=== PATIENT | female | born 1975 | race Caucasian/White ===

== ENCOUNTER 2017-06-08 17:06 | Emergency (ER) | payer OTHER, SELFPAY | END 2017-06-08 19:01 | disposition home or self-care (01) | PROVIDERS: Emergency Provider Nurse Practitioner Family; Family Provider Internal Medicine Adolescent Medicine; Visit Provider Nurse Practitioner Family | DX: J10.1 Influenza due to other identified influenza virus with other respiratory manifestations (principal) | CPT/HCPCS: 87804; 99201 ==

== ENCOUNTER → 2017-10-17 13:58 | Outpatient (POV) | payer OTHER, SELFPAY | PROVIDERS: Family Provider Internal Medicine Adolescent Medicine; PCP Internal Medicine Adolescent Medicine; Visit Provider Nurse Practitioner Acute Care | DX: Z00.00 Encounter for general adult medical examination without abnormal findings (principal) ==

== ENCOUNTER → 2018-04-04 09:23 | Outpatient (CLI) | payer OTHER, SELFPAY ==
--- NOTE | 2018-04-04 09:26 | US_ITS ---
US transvaginal HISTORY: Dysfunctional uterine bleeding ITS.REASON: US T/V- R/O Cysts ORDERING PHYSICIAN: Tushar Long MD PATIENT AGE: 42 years Comparison: None Last menstrual period 03/24/2018 FINDINGS: The uterus is 8 x 4 x 5.4 cm with a combined endometrial thickness of 9 mm. The uterus is retroverted. A nabothian cyst is present at 5 mm. No uterine mass apparent. The left ovary is 3.4 x 2.2 cm and contains several small follicles and a 14 mm follicular cyst as well as a 16 mm follicular cyst. The right ovary has an unremarkable appearance at 1.6 x 1.3 cm. No cul-de-sac fluid is evident. IMPRESSION: 1. Unremarkable appearing retroverted uterus 2. Follicular cysts of the left ovary
== END ==
PROVIDERS: PCP Internal Medicine Adolescent Medicine; Visit Provider Nurse Practitioner Obstetrics & Gynecology
DX: R10.2 Pelvic and perineal pain (principal)
CPT/HCPCS: 76830

== ENCOUNTER → 2018-04-06 14:33 | Outpatient (CLI) | payer OTHER, SELFPAY ==
--- NOTE | 2018-04-06 14:34 | MM_ITS ---
MM Dig screening mamm BI w/CAD CAD Screening COMPARISON: Digital mammograms with CAD 04/02/2016 and 04/01/2017 INDICATION: There is no personal or family history of breast cancer TECHNIQUE: Standard CC and MLO images were obtained. R2 CAD reviewed. FINDINGS: Scattered fibroglandular densities are seen throughout both breasts. Again noted is a slightly increased area of asymmetric glandular tissue upper outer quadrant left breast with no suspicious characteristics. There are no suspicious microcalcifications. IMPRESSION: Stable exam no suspicious lesion seen BI-RADS Category: 1 Negative RECOMMENDED FOLLOW-UP: 1YR - 1 YEAR FOLLOW-UP (A letter has been sent to the patient regarding results of the study.)
== END ==
PROVIDERS: PCP Internal Medicine Adolescent Medicine; Visit Provider Nurse Practitioner Obstetrics & Gynecology
DX: Z12.31 Encounter for screening mammogram for malignant neoplasm of breast (principal)
CPT/HCPCS: 77067

== ENCOUNTER → 2019-02-27 07:52 | Outpatient (CLI) | payer OTHER, SELFPAY ==
--- NOTE | 2019-02-27 07:54 | US_ITS ---
PROCEDURE: US TRANSVAGINAL CLINICAL INDICATION: Breakthru /abnormal vag bleeding COMPARISON: TRANVAG US transvaginal from 04/04/2018 FINDINGS: The uterus is 8.5 x 4 x 4.9 cm with a combined endometrial thickness of 6 mm. There are nabothian cyst present. No uterine mass demonstrated. The left ovary is unremarkable measuring 2.4 x 1.5 cm. Right ovary measures 3.6 x 2.8 cm and contains a 2.5 cm x 3 cm cyst no cul-de-sac fluid evident. IMPRESSION: 3 cm right ovarian cyst otherwise negative pelvic ultrasound Dictated by: Edmund Azul MD 02/27/2019 17:41 Electronically signed by Edmund Azul MD in [place] 02/27/2019 17:41
== END ==
PROVIDERS: PCP Internal Medicine Adolescent Medicine; Visit Provider Nurse Practitioner Obstetrics & Gynecology
DX: N93.9 Abnormal uterine and vaginal bleeding, unspecified (principal)
CPT/HCPCS: 76830

== ENCOUNTER → 2019-04-04 07:27 | Outpatient (CLI) | payer OTHER, SELFPAY ==
[2019-04-04 07:38] LABS: Basophils % 0.6 % (0.1-2.0); Eosinophils # 0.1 K/mm3 (0.0-0.4); Eosinophils % 1.5 % (0.1-12.0); Hematocrit 41.1 % (37.0-47.0); Lymphocytes # 1.5 K/mm3 (0.7-4.5); Lymphocytes % 26.5 % (10-50); Mean Corpuscular HGB Conc 31.6 g/dL (31.8-35.4); Mean Corpuscular Hemoglobin 32.2 pg (27.0-31.2); Mean Corpuscular Volume 101.8 fl (81-99); Mean Platelet Volume 8.1 fl (7.4-10.4); Monocytes # 0.2 K/mm3 (0.1-1.0); Monocytes % 3.9 % (1.7-9.3); Neutrophils # 3.8 K/mm3 (1.8-7.8); Neutrophils % 67.4 % (37.0-80.0); Platelet Count 310 K/mm3 (142-424); Red Blood Count 4.03 M/mm3 (4.20-5.40); White Blood Count 5.7 K/mm3 (4.8-10.8)
[2019-04-04 08:23] LABS: Anion Gap 16.4 mEq/L (5-15); Blood Urea Nitrogen 21 mg/dL (7-18); Calcium 9.3 mg/dL (8.5-10.1); Carbon Dioxide 25 mmol/L (21.0-32.0); Chloride 102 mmol/L (98-107); Creatinine,Serum 0.88 mg/dL (0.55-1.02); Estimated Glomerular Filt Rate 70 ml/min (>60); GFR (African American) 85 ML/MIN (>60); Glucose 94 mg/dL (74-106); Magnesium 1.9 mg/dL (1.4-2.2); Potassium 4.4 mmoL/L (3.5-5.1); Sodium 139 mmol/L (136-145); Thyroid Stimulating Hormone 1.62 uIU/ml (0.358-3.740)
== END ==
PROVIDERS: Visit Provider Nurse Practitioner Family
DX: I10 Essential (primary) hypertension (principal); R06.00 Dyspnea, unspecified; R00.2 Palpitations
CPT/HCPCS: 36415; 80048; 83735; 84443; 85025

== ENCOUNTER → 2019-04-05 09:59 | Outpatient (CLI) | payer OTHER, SELFPAY ==
--- NOTE | 2019-04-05 | CA_ITS ---
[facility] RADIOLOGICAL CONSULTATION Patient Name : Maritza Monge X-RAY # : [id number] Physician: GABE YANNICK AGE: 43Y : 1975 00:00:00 ( F ) Exam : CA ECHO DOPPLER COMPLETE ACC # : [id number] Study Date : 04/05/2019 10:04:50 Patient Class : O FINAL REPORT CLINICAL DATA: FINDINGS: TRANSCRIBED REPORT EXAM: Comprehensive 2D, Doppler, and color-flow Echocardiogram Chief Human Resources Officer: Yari Velásquez, RT(R) Ht: 5 ft 5 in Wt: 190lbs BSA: 1.94 BP: 144/93 mmHg Indications: Palpitations, HTN, SOB, family histoy of heart disease. 2D Dimensions Aortic Root 2.60 cm F: 2.7 - 3.3 Left Atrium 3.30 cm F: 2.7 - 3.8 LVOT 1.69 cm (M/F) 1.5-2.5 M-Mode Dimensions RVDd 2.19 cm (0.9-2.6) LVDd 4.61 cm (3.5-5.7) Ao Diam 2.60 cm (2.0-3.7) LVDs 3.36 cm (3.5-5.7) AV Cusp 3.30 cm (1.5-2.6) IVSd 0.87 cm (0.6-1.1) PWd 0.91 cm (0.6-1.1) EF (Teich) 52.90% FS 27.10% EDV (Teich) 97.80 mL ESV (Teich) 46.10 mL LV Diastology E/A Ratio 1.03 Mitral Valve MV A Velocity 53.00 (40-130 cm/s) Electronically signed by : IMPRESSION: Dictated by at Transcribed by at
== END ==
PROVIDERS: PCP Internal Medicine Adolescent Medicine; Visit Provider Nurse Practitioner Family
DX: R00.2 Palpitations (principal)
CPT/HCPCS: 93306

== ENCOUNTER → 2019-07-13 07:27 | Outpatient (CLI) | payer OTHER, SELFPAY ==
--- NOTE | 2019-07-13 07:32 | MM_ITS ---
PROCEDURE: MM DIG SCREENING MAMM BI W/CAD CLINICAL INDICATION: Routine Screening Mammogram There is no personal or family history of breast cancer COMPARISON: DMDB DIG MAMM-DX KYA from 04/02/2016 DMSB DIG MAMM-SCREEN KYA W/CAD from 04/01/2017 [facility] MM Dig screening mamm BI w/CAD from 04/06/2018 TECHNIQUE: Standard CC and MLO images and 3D Tomosynthesis was obtained. R2 CAD reviewed. FINDINGS: Scattered fibroglandular densities are seen throughout both breasts and the findings of bilateral and symmetrical. There is no new or suspicious lesion in either breast and no suspicious microcalcifications. There are small nodes in both axilla. IMPRESSION: Fibrofatty parenchyma with no suspicious lesions seen BI-RAD Category: 1 Negative FOLLOW-UP: 1YR 1 Year Follow-up (A letter has been sent to the patient regarding results of the study.) Dictated by: Dr. Mateus Hunter MD 07/16/2019 09:[address] Mateus Hunter MD in [place] 07/16/2019 09:42
== END ==
PROVIDERS: PCP Internal Medicine Adolescent Medicine; Visit Provider Nurse Practitioner Obstetrics & Gynecology
DX: Z12.31 Encounter for screening mammogram for malignant neoplasm of breast (principal)
CPT/HCPCS: 77063; 77067

== ENCOUNTER 2019-08-29 15:00 | Outpatient (RCR) | payer OTHER, SELFPAY | END 2019-08-29 15:05 | disposition home or self-care (01) | LOC: PT 15:00 | PROVIDERS: PCP Internal Medicine Adolescent Medicine; Visit Provider Podiatrist | DX: M72.2 Plantar fascial fibromatosis (principal) | CPT/HCPCS: 20560; 97010; 97014; 97033; 97035; 97110; 97140; 97163; G0283 ==

== ENCOUNTER → 2019-09-20 14:17 | Outpatient (CLI) | payer OTHER, SELFPAY ==
--- NOTE | 2019-09-20 14:19 | MR_ITS ---
PROCEDURE: MR ANKLE LT WO/W CON CLINICAL INDICATION: Eval. for PF tear, achilles insertional tendonitis Plantar fasciitis/tear, Achilles insertional tendinitis COMPARISON: No exams were available for comparison TECHNIQUE: Routine multiplanar multi echo sequences are performed without and with gadolinium enhancement. FINDINGS: The tibiofibular ligaments appear intact. There is thinning of the ATFL laterally. Small amount fluid is present at the anterior aspect of the ankle joint and posterior to the ATFL. The PT FL appears intact as does the deltoid ligament. The talar dome has an unremarkable appearance. The Achilles tendon is unremarkable. There is a mild amount of bone marrow edema involving the calcaneus at the insertional site of the plantar fascia with mild thickening and slight increased T2 signal of the plantar fascia posteriorly. No obvious fascial tear. There is subcutaneous edema involving the heel at the region of the posterior aspect of the plantar fascia and calcaneus junction. No fluid collections evident at this region. No tendinous abnormalities are apparent. IMPRESSION: 1. The findings are compatible with plantar fasciitis with mild thickening and increased T2 signal of the plantar fascia at its insertion on the calcaneus with some mild edema of the calcaneus at this area and subcutaneous edema also present at this region. No evidence of fascial tear. 2. There is thinning of the ATFL with questionable discontinuity laterally which could be due to an old injury with a small amount of fluid at this area and a small amount fluid in the anterior aspect of the ankle joint Dictated by: Edmund Azul MD 09/22/2019 09:27 Electronically signed by Edmund Azul MD in [place] 09/22/2019 09:27
== END ==
PROVIDERS: PCP Internal Medicine Adolescent Medicine; Visit Provider Podiatrist
DX: M72.2 Plantar fascial fibromatosis (principal); M79.672 Pain in left foot
CPT/HCPCS: 73723; A9576

== ENCOUNTER → 2020-06-04 08:53 | Outpatient (CLI) | payer OTHER, SELFPAY ==
[2020-06-04 09:00] LABS: Adenovirus,PCR Not Detected (NotDetected); Bordetella Pertussis Not Detected (NotDetected); Chlamydophila Pneumoniae, PCR Not Detected (NotDetected); Coronavirus 19, PCR Not Detected (NotDetected); Coronavirus 229E Not Detected (NotDetected); Coronavirus NL63 Not Detected (NotDetected); Coronavirus OC43 Not Detected (NotDetected); Coronovirus HKU1,PCR Not Detected (NotDetected); Human Metapneumovirus Not Detected (NotDetected); Influenza A, PCR Not Detected (NotDetected); Influenza AH1, 2009 Not Detected (NotDetected); Influenza AH1, PCR Not Detected (NotDetected); Influenza AH3,PCR Not Detected (NotDetected); Influenza B, PCR Not Detected (NotDetected); Mycoplasma Pneumoniae, PCR Not Detected (NotDetected); Parainfluenza 1, PCR Not Detected (NotDetected); Parainfluenza 2, PCR Not Detected (NotDetected); Parainfluenza 3, PCR Not Detected (NotDetected); Parainfluenza 4, PCR Not Detected (NotDetected); Respiratory Syncytial Virus Not Detected (NotDetected)
[2020-06-04 12:02] LABS: Rhinovirus/Enterovirus Detected (NotDetected)
== END ==
PROVIDERS: Visit Provider Nurse Practitioner Family
DX: Z03.818 Encounter for observation for suspected exposure to other biological agents ruled out (principal); J06.9 Acute upper respiratory infection, unspecified; B34.1 Enterovirus infection, unspecified
CPT/HCPCS: 36415; 87581; 87633; 87798

== ENCOUNTER → 2020-07-16 13:35 | Outpatient (CLI) | payer OTHER, SELFPAY ==
--- NOTE | 2020-07-16 14:21 | MM_ITS ---
PROCEDURE: MM DIG SCREENING MAMM BI W/CAD Digital Breast Tomosynthesis Included CLINICAL INDICATION: Routine Screening Mammogram There is no personal or family history of breast cancer. The patient is on control pills. COMPARISON: MG DMSB DIG MAMM-SCREEN KYA W/CAD from 04/01/2017 MG [facility] MM Dig screening mamm BI w/CAD from 04/06/2018 MG MM DIG SCREENING MAMM BI W/CAD from 07/13/2019 TECHNIQUE: Standard CC and MLO images and 3D Tomosynthesis was obtained. R2 CAD reviewed. FINDINGS: Mild to moderate scattered fibroglandular densities are seen throughout both breasts and the findings are bilateral and symmetrical. There is a stable tiny benign-appearing nodular density outer quadrant right breast. There is no suspicious lesion and no suspicious microcalcifications. IMPRESSION: Mild to moderate breast density with no suspicious lesions seen BI-RAD Category: 1 Negative FOLLOW-UP: 1YR 1 Year Follow-up (A letter has been sent to the patient regarding results of the study.) Dictated by: Dr. Mateus Hunter MD 07/18/2020 09:13 Dr. Mateus Hunter MD in [place] 07/18/2020 09:13
== END ==
PROVIDERS: PCP Nurse Practitioner Family; Visit Provider Nurse Practitioner Obstetrics & Gynecology
DX: Z12.31 Encounter for screening mammogram for malignant neoplasm of breast (principal)
CPT/HCPCS: 77063; 77067

== ENCOUNTER → 2020-10-10 08:26 | Outpatient (CLI) | payer OTHER, SELFPAY ==
--- NOTE | 2020-10-10 17:14 | PC.NURSE ---
Called and spoke with Summer in [place], ok to notify pt of results of covid swab. pt called at this times as well. pt is positive for COVID.
== END ==
PROVIDERS: Visit Provider Internal Medicine Gastroenterology
DX: Z20.822 Contact with and (suspected) exposure to COVID-19 (principal); U07.1 COVID-19

== ENCOUNTER → 2020-10-11 19:27 | Outpatient (CLI) | payer OTHER, SELFPAY | PROVIDERS: PCP Nurse Practitioner Family; Visit Provider Nurse Practitioner Family | DX: Z20.822 Contact with and (suspected) exposure to COVID-19 (principal) | CPT/HCPCS: U0003 ==

== ENCOUNTER → 2020-10-12 12:08 | Outpatient (CLI) | payer OTHER, SELFPAY | PROVIDERS: PCP Internal Medicine Adolescent Medicine; Visit Provider Internal Medicine Adolescent Medicine | DX: Z20.822 Contact with and (suspected) exposure to COVID-19 (principal) | CPT/HCPCS: U0003 ==

== ENCOUNTER 2020-10-13 07:26 | Day surgery (SDC) | payer OTHER, SELFPAY ==
[2020-10-09 10:58] VITALS: BMI 33.3
[2020-10-10 12:39] LABS: Urine Pregnancy, HCG Qual. Negative (Negative)
[2020-10-13 07:45] VITALS: BP 149/93; PULSE 97; RESP 16; TEMP 36.2; O2SAT 96
[2020-10-13 08:31] VITALS: O2SAT 97
--- NOTE | 2020-10-13 08:35 | P.PCN_ITS ---
[facility] Procedure Note Procedure Note:: Colonoscopy Procedure Report: Colonoscopy with cold snare polypectomy Endoscopist: Marco Perkins II, MD Referring physician: Jaime Garcia M.D. Date of Procedure: October 13, 2020 Equipment: Olympus 190 variable stiffness pediatric colonoscope Sedation: MAC sedation Indication: Mrs. Monge is a 45-year-old female who is here for surveillance colonoscopy. She did have a colonoscopy by Dr. Aly Oliva in August 2015 but did not have any colon polyps. She had a sigmoidoscopy with me because of an anal fissure in November 2017 and had 2 small polyps (hyperplastic polyps x2). She does state that her father had colon cancer around the age of 60. The patient does take combined MiraLAX plus Citrucel which helps improve bowel function. The patient reports no abdominal pain, weight loss, change in her bowel habits or rectal bleeding. She does report postprandial bloating which is new over the last 3 to 4 months. Procedure: Prior to the procedure, a history and physical exam was performed, and patient's medications and allergies were reviewed. The risks, benefits and alternatives of the sedation and procedure were discussed with the patient. All questions were answered and informed consent was obtained. The patient was brought to the procedure room. Patient identification and proposed procedure were verified by the physician and the nurse. The patient was placed in a left lateral decubitus position and the scope was passed under direct vision. Throughout the procedure, the patient's blood pressure, pulse, and oxygen saturations were monitored continuously. The colonoscopy was accomplished without difficulty. The patient tolerated the procedure well. Findings: On digital rectal examination there was normal rectal tone. There were no external hemorrhoids. The colonoscope was introduced through the anal canal to the rectum and advanced to the cecum. The ileocecal valve and appendiceal orifice were identified. The scope was advanced a short distance into the ileum which appeared grossly normal. The scope was then withdrawn into the colon. The cecum, ascending and transverse colon and mucosa were grossly normal. There was a diminutive 3 to 4 mm polyp in the descending colon removed via cold snare polypectomy. There was minor oozing of heme so a single Endo Clip was placed over the polypectomy site with hemostasis. There were very mildly scattered diverticuli in the descending and sigmoid colon (LEFT colon). The rectum itself was normal. Upon retroflexion within the rectum there were grade 1-2 internal hemorrhoids. The preparation was excellent throughout with [place] Preparation Score of 9. The cecal time was 12 minutes. Impression: 1. Diminutive descending colon polyp (3 to 4 mm) 2. Mild left-sided diverticulosis 3. Grade 1-2 internal hemorrhoids Plan: Based upon the patient's family history, I would continue surveillance at a 5- year interval. I will follow up the polyp histology. The patient does have postprandial bloating. I would consider switching from MiraLAX plus Citrucel to MiraLAX plus Konsyl. I would also recommend C 13 sucrose breath testing. We will discuss FODMAPs and high residue that will lead to bloating/gas.
[2020-10-13 08:54] VITALS: BP 119/71; PULSE 74; RESP 18; TEMP 36.8; O2SAT 93
[2020-10-13 09:04] VITALS: BP 131/80; PULSE 76; RESP 18; O2SAT 99
[2020-10-13 09:14] VITALS: BP 120/86; PULSE 76; RESP 18; O2SAT 100
[2020-10-13 09:24] VITALS: BP 142/86; BP 142/90; PULSE 72; RESP 18; O2SAT 100
--- NOTE | 2020-10-13 17:00 | HMH.ANESCL ---
[facility] Anesthesia Checklist - Patient Identification Patient Identification: Arm Band - Structural Data Admitted From: Home Planned Operative Procedure/s: Colonoscopy Verified Documents: Surgical Consent, History and Physical - NPO Status Verified Time NPO: 00:00 - Additional verifications Anesthesia Reactions: No - Airway Assessment C-Spine Mobility Assessed: Yes TMJ Mobility Assessed: Yes Dentition: Good Dentition - Neurological Assessment Level of Consciousness: Awake, Alert - Anesthesia Plan Anesthesia Risk discussed: Yes Anesthesia Plan: Verified ASA Class: II Anesthesia Type: MAC [facility] History Medical History: Reports:: Depression, Gastroesophageal Reflux Disease(GERD), Hypertension Denies:: Cancer, Diabetes Mellitus Type 1, Diabetes Mellitus Type 2, Internal Pacemaker, Lung Disease, MRSA, Seizures *Have you ever received a pneumonia vaccine?: No *Have you received a flu vaccine this season?: Yes Other Medical History: Reports: Other Anesthesia experience/problems:: None Other Surgeries: Yes: No Previous Surgery, Tubal Ligation. No: Pacemaker Amputation: No Fractures: No - *Social History Last grade of school completed: High school graduate Smoking Status: Never smoker Alcohol Intake: never Alcohol Intake Frequency:: other Substance Use Type: denies use *Occupational Status:: employed Housing: house Household Members: spouse, family *Travel in the last 8 weeks: None - Psychiatric History Pschychiatric History:: Reports:: Depression Family Hx:: Diabetes, Cancer
== END 2020-10-13 09:52 | disposition home or self-care (01) ==
LOC: OUTP 07:26
PROVIDERS: PCP Nurse Practitioner Family; Visit Provider Internal Medicine Gastroenterology
PROC: 0DJD8ZZ Inspection of Lower Intestinal Tract, Via Natural or Artificial Opening Endoscopic (ICD-10-PCS; CPT 45378; principal; 2020-10-13 08:30)
DX: Z12.11 Encounter for screening for malignant neoplasm of colon (principal); Z86.010 Personal history of colon polyps; Z80.0 Family history of malignant neoplasm of digestive organs; K63.5 Polyp of colon; K57.30 Diverticulosis of large intestine without perforation or abscess without bleeding; K64.0 First degree hemorrhoids
CPT/HCPCS: 45385; 81025; U0003

== ENCOUNTER 2021-10-11 09:59 | Emergency (ER) | payer OTHER, SELFPAY ==
[2021-10-11 10:15] VITALS: BP 148/90; PULSE 90; RESP 18; TEMP 36.8; O2SAT 96; BMI 33.3
[2021-10-11 10:43] LABS: Strep Scrn Group A (Rapid) Negative (Negative)
--- NOTE | 2021-10-11 10:43 | HMH.EDUTC ---
[facility] Disposition Clinical Impression: Maxillary sinusitis, acute Qualifiers: Recurrence: non-recurrent Qualified Code(s): J01.00 - Acute maxillary sinusitis, unspecified Disposition: Home, Self-Care Condition on Discharge: Good Instructions: DI for Sinusitis Additional Instructions: Start antibiotic patient to take as ordered for a full length of time even if you feel better. Sinus infections do not get better overnight. It may take 2-3 days to notice much improvement so be sure to use conservative measures as discussed for symptoms. Flonase 1 spray each nostril daily to help with nasal congestion, sinus and ear pressure/information Increase fluids Humidifier/vaporizer as needed Tylenol and ibuprofen as needed for fever or pain. If symptoms do not improve or get worse return or be seen in the ER Follow-up with primary care this week Prescriptions: Fluticasone Propionate [Flonase 50mcg nasal spray 16gm] 1 spr NS DAILY 14 Days #9.9 ml Transmission Status: Pending to [facility] predniSONE [Prednisone 20mg Tab] 20 mg PO BID #10 tab Transmission Status: Pending to [facility] Azithromycin [Zithromax 250mg tab] 250 mg PO DIRECTED #6 tab Transmission Status: Pending to [facility] Referrals: Jaime Garcia MD [Primary Care Provider] - Time of Disposition: 11:12 Medical Decision Making - Gregory Inquiry Pt receiving controlled substance: No Vital Signs: 10/11/21 10:15 Temperature 98.3 F Temperature Source Oral Pulse Rate [Right Brachial] 90 Respiratory Rate 18 Blood Pressure [Right Arm] 148/90 H Blood Pressure Mean [Right Arm] 109 Blood Pressure Source [Right Arm] Automatic Cuff Blood Pressure Position [Right Arm] Sitting 02 Sat by Pulse Oximetry 96 Oxygen Delivery Method Room Air - Lab Data Lab Results 10/11/21 10:22: Group A Strep Rapid Negative Orders (Tests/Meds): ORDERS Category Date Time Status Strep Screen Confirmation Stat Micro 10/11/21 10:22 Received [facility] HPI - General Chief complaint: Urgent Treatment Center Stated complaint: sore throat and coughing Time Seen by Provider: 10/11/21 10:44 Mode of Arrival: Ambulatory Source of Information: Patient Limitations: No Limitations Description of Symptoms (Recalled from Triage Doc. by RN): PATIENT C/O SORE THROAT, COUGH, SNEEZING, AND PRESSURE IN EARS SINCE TUESDAY HEENT Symptoms (Recalled from RN notes): Yes Resp Symptoms (Recalled from RN notes): Yes Skin Symptoms (Recalled from RN notes): No MS Symptoms (Recalled from RN notes): No Functional Status (Recalled from RN notes): WNL - History of Present Illness Provider Complaint: 46 yr old female presents for cough,sore throat, pressure in ears, sinus pressure, dark sinus drainage since tuesday and drainage has changed colors - Related Data Home Medications Medication Instructions Recorded Confirmed Spironolactone [Aldactone 25mg 50 mg PO BID 10/31/17 03/11/21 Tab] Loratadine [Claritin 10mg 10 mg PO DAILY 11/29/17 03/11/21 Tablet] escitalopram oxalate 10 mg tablet 10 mg PO DAILY tab 10/23/19 03/11/21 omeprazole 20 mg capsule,delayed 20 mg PO DAILY cap 10/23/19 03/11/21 release Amlodipine Besylate [Amlodipine 5 mg PO DAILY 10/09/20 03/11/21 10mg Tab] Previous Rx's Medication Instructions Recorded norgestimate 0.25 mg-ethinyl 1 tab PO DAILY #28 tab 03/11/21 estradiol 35 mcg tablet Azithromycin [Zithromax 250mg 250 mg PO DIRECTED #6 tab 10/11/21 tab] Fluticasone Propionate [Flonase 1 spr NS DAILY 14 Days #9.9 ml 10/11/21 50mcg nasal spray 16gm] predniSONE [Prednisone 20mg 20 mg PO BID #10 tab 10/11/21 Tab] Allergies Allergy/AdvReac Type Severity Reaction Status Date / Time No Known Allergies Allergy Verified 03/11/21 16:15 - Worker's Comp Is this a Worker's Comp case?: No H History - Hepatitis A Screen Attestation statement:: This patient has been screened for Hepa
[2021-10-11 11:03] VITALS: BP 148/90; PULSE 90; RESP 18; TEMP 36.8; O2SAT 96
== END 2021-10-11 11:15 | disposition home or self-care (01) ==
PROVIDERS: Emergency Provider Nurse Practitioner Family; PCP Internal Medicine Adolescent Medicine
DX: J01.00 Acute maxillary sinusitis, unspecified (principal); K21.9 Gastro-esophageal reflux disease without esophagitis; I10 Essential (primary) hypertension; Z79.899 Other long term (current) drug therapy
CPT/HCPCS: 87430; 99212; G0463

== ENCOUNTER → 2021-12-18 13:12 | Outpatient (CLI) | payer OTHER, SELFPAY ==
--- NOTE | 2021-12-18 13:12 | MM_ITS ---
PROCEDURE INFORMATION: Exam: MG Bilateral Screening 3D Mammography Exam date and time: 12/18/2021 1:24 PM Age: 46 years old Clinical indication: Screening. No family history of breast cancer. TECHNIQUE: Imaging protocol: Bilateral Screening tomosynthesis and 2D mammography including computer-aided detection (CAD) when performed. COMPARISON: 1. MG MM DIG SCREENING MAMM BI W/CAD 07/16/2020 2:19 PM 2. MG MM DIG SCREENING MAMM BI W/CAD 07/13/2019 10:11 AM 3. MG [facility] MM Dig screening mamm BI w/CAD 04/06/2018 2:43 PM 4. MG DMSB DIG MAMM-SCREEN KYA W/CAD 04/01/2017 10:52 AM FINDINGS: MAMMOGRAPHY: Breast composition: There are scattered areas of fibroglandular density. Mass: No suspicious mass. Architectural distortion: None. Calcifications: No suspicious calcifications. Asymmetric density: None. Skin thickening: None. Axillary adenopathy: None. IMPRESSION: No mammographic evidence of malignancy. Annual screening is recommended unless otherwise clinically indicated. ASSESSMENT: BI-RADS Category 1: Negative
== END ==
PROVIDERS: PCP Internal Medicine Adolescent Medicine; Visit Provider Nurse Practitioner Obstetrics & Gynecology
DX: Z12.31 Encounter for screening mammogram for malignant neoplasm of breast (principal)
CPT/HCPCS: 77063; 77067

== ENCOUNTER 2022-02-04 08:07 | Emergency (ER) | payer OTHER, SELFPAY ==
[2022-02-04 08:20] VITALS: BP 131/86; PULSE 86; RESP 21; TEMP 37.1; O2SAT 100; BMI 28.1
--- NOTE | 2022-02-04 08:58 | EXP.UTC ---
Discharge Plan Disposition Patient Disposition: Home, Self-Care Condition: Good Prescriptions Prescriptions: New amoxicillin-pot clavulanate 875-125 mg tablet 1 tab PO Q12H Qty: 14 0RF No Action norgestimate-ethinyl estradiol [Sprintec (28)] 0.25-35 mg-mcg tablet 1 tab PO DAILY Qty: 28 11RF omeprazole 20 mg capsule,delayed release(DR/EC) 20 mg PO DAILY escitalopram oxalate 10 mg tablet 10 mg PO DAILY Label Comments: TAKE ONE TABLET BY MOUTH EVERY DAY spironolactone 25 MG tablet 50 mg PO BID loratadine 10 tablet 10 mg PO DAILY amlodipine 10 MG tablet 5 mg PO DAILY azithromycin 250 MG tablet 250 mg PO DIRECTED Qty: 6 0RF Rx Instructions: Take two (2) tablets on day #1, then one (1) tablet day #2 thru #5 prednisone 20 MG tablet 20 mg PO BID Qty: 10 0RF fluticasone propionate 120 SPR/BOT bottle 1 spr NS DAILY 14 Days Qty: 9.9 0RF azithromycin 250 MG tablet 250 mg PO UD DOSE PK Qty: 6 0RF Rx Instructions: Take two (2) tablets today, then one (1) tablet days #2 thru #5 benzonatate 100 MG capsule 100 mg PO TIDP PRN (Reason: Cough) Qty: 30 0RF methylprednisolone 4 MG tablets,dose pack 4 mg PO DIRECTED 6 Days Qty: 21 0RF Referrals Referrals: Jaime Garcia MD [Primary Care Provider] - Enter time for follow up Activity Restrictions/Add. Instructions Additional Instructions/Restrictions: *Monitor Temp, Over the counter Motrin or Tylenol as directed/as needed Tylenol every 4 hours and Motrin every 6 hours (as long as your family doctor has told you that you can take it) for fever or pain. and straight to ER if unable to lower temp less than 101.0 after medication given *Warm salt water gargles may help to soothe the throat *Throat Lozenges? *Warm fluids like tea with honey may help to soothe the throat? *Sleep elevated *Humidifier/Vaporizer Your throat swab was sent for culture. Those results are typically sent to your primary care. Be sure to follow up in 2-3 days with your family doctor/primary care physician if no improvement so they can review those result and treat if necessary. If you don?t have a primary care doctor, I recommend you get one but in the mean time, you will have to return to a walk in clinic Follow up IMMEDIATELY for new or worsening symptoms or no Noticeable improvement over the next 48-72 hours. 911 for difficulty breathing or swallowing You were tested for today for COVID19 your test result should be back in the next few hours, you may check your results on the [facility] My Health Portal Make sure to take your Vitamins Vit. C Vit D and Zinc if you can take them Clinical Impressions Clinical Impression: Sinusitis, Maxillary sinusitis, acute Stand Alone Forms Stand Alone Forms: Work/School Release Discharge [place] [facility] [place] General Stated complaint: headache,cough,sore throat Time Seen by Provider: 02/04/22 08:57 Mode of Arrival: Ambulatory Source of Information: Patient Limitations: No Limitations Description of Symptoms (Recalled from Triage Doc. by RN): PATIENT C/O COUGH, SOA, BODY ACHES AND HEADACHE SINCE YESTERDAY HEENT Symptoms (Recalled from RN notes): Yes Resp Symptoms (Recalled from RN notes): Yes Skin Symptoms (Recalled from RN notes): No MS Symptoms (Recalled from RN notes): No Functional Status (Recalled from RN notes): WNL History of Present Illness Provider Complaint: Patient states that she feels like she has a bad sinus infection States that she has been feeling achy sinus pain and pressure cough and felt a little SOA States that she also wanted to get tested for COVID States that today she was feeling worse so she came down to get checked Related Data Home Medications Medication Instructions Recorded Confirmed spironolactone 25 mg tablet 50 mg PO BID Edema 10/31/17 03/11/21 loratadine 10 mg tablet 10 mg PO DAILY allergies 11/11
[2022-02-04 09:02] LABS: UTC Strep Screen (Rapid) Negative (Negative)
[2022-02-04 09:03] LABS: Influenza A, PCR Not Detected (NotDetected); Influenza B, PCR Not Detected (NotDetected)
[2022-02-04 09:23] VITALS: BP 131/86; PULSE 86; RESP 21; TEMP 37.1; O2SAT 100
[2022-02-04 10:08] LABS: Coronavirus 19, PCR Detected (NotDetected)
== END 2022-02-04 09:49 | disposition home or self-care (01) ==
PROVIDERS: Emergency Provider Nurse Practitioner; PCP Internal Medicine Adolescent Medicine
DX: J01.90 Acute sinusitis, unspecified (principal); Z20.822 Contact with and (suspected) exposure to COVID-19
CPT/HCPCS: 87880; 99212; C9803; G0463; U0003; U0005

== ENCOUNTER → 2022-10-06 06:31 | Outpatient (CLI) | payer OTHER, SELFPAY ==
[2022-10-06 07:45] LABS: Basophils # 0.1 K/mm3 (0-0.2); Basophils % 1.2 % (0.1-2.0); Eosinophils # 0.3 K/mm3 (0.0-0.4); Hematocrit 41.8 % (37.0-47.0); Hemoglobin 13.6 g/dL (12.2-16.2); Lymphocytes # 1.3 K/mm3 (0.7-4.5); Mean Corpuscular HGB Conc 32.4 g/dL (31.8-35.4); Mean Corpuscular Hemoglobin 31.1 pg (27.0-31.2); Mean Corpuscular Volume 95.8 fl (81-99); Mean Platelet Volume 8.7 fl (7.4-10.4); Monocytes # 0.3 K/mm3 (0.1-1.0); Monocytes % 6.1 % (1.7-9.3); Neutrophils # 2.2 K/mm3 (1.8-7.8); Neutrophils % 53.6 % (37.0-80.0); Platelet Count 239 K/mm3 (142-424); Red Blood Count 4.37 M/mm3 (4.20-5.40); Red Cell Distribution Width 13.1 % (11.5-17.5); White Blood Count 4.1 K/mm3 (4.8-10.8)
[2022-10-06 09:24] LABS: Chloride 103 mmol/L (98-107); Potassium 4.2 mmoL/L (3.5-5.1); Sodium 140 mmol/L (136-145)
[2022-10-06 09:26] LABS: Blood Urea Nitrogen 16 mg/dl (7-17); Estimated Glomerular Filt Rate 90 ml/min (>60); GFR (African American) 109 ML/MIN (>60)
[2022-10-06 09:27] LABS: Alanine Aminotransferase 18 U/L (12-78); Albumin Level 4.3 g/dl (3.5-5.0); Albumin/Globulin Ratio 1.7 (1.1-1.8); Alkaline Phosphatase 53 U/L (38-126); Anion Gap 13.2 mEq/L (5-15); Aspartate Amino Transferase 22 U/L (14-36); Bilirubin,Total 0.4 mg/dl (0.2-1.3); Calcium 9.1 mg/dl (8.4-10.2); Carbon Dioxide 28 mmol/L (22.0-30.0); Chol/HDL Ratio 4.8 (1-3.5); Cholesterol 153 mg/dl (140-200); Globulin 2.5 g/dL (1.3-3.2); Glucose 91 mg/dl (74-100); HDL Cholesterol 32 mg/dl (40-60); Total Protein,Serum 6.8 g/dl (6.3-8.2); Triglycerides 102 mg/dl (30-150); VLDL Cholesterol 20 mg/dL (0-40)
[2022-10-06 09:38] LABS: Direct LDL Cholesterol 108.97 mg/dL (100-129)
[2022-10-06 09:58] LABS: Thyroid Stimulating Hormone 1.04 uIU/mL (0.465-4.68)
[2022-10-06 11:01] LABS: Hemoglobin A1C 5.1 % (4.0-6.0)
[2022-10-06 13:51] LABS: Vitamin B12 366 pg/mL (239-931)
[2022-10-07 09:55] LABS: FSH 22.4 mIU/mL (.); LH 15.5 mIU/mL (.)
[2022-10-07 11:52] LABS: Insulin Level Total 10.1 uIU/mL (2.6-24.9)
[2022-10-14 01:08] LABS: Estrogen 134 pg/mL (.)
== END ==
PROVIDERS: PCP Nurse Practitioner Family; Visit Provider Nurse Practitioner Family
DX: Z00.00 Encounter for general adult medical examination without abnormal findings (principal); N92.6 Irregular menstruation, unspecified; Z79.899 Other long term (current) drug therapy; E66.9 Obesity, unspecified; Z68.35 Body mass index [BMI] 35.0-35.9, adult
CPT/HCPCS: 36415; 80053; 80061; 82306; 82607; 82672; 83001; 83002; 83036; 83525; 84443; 85025

== ENCOUNTER 2023-01-05 11:44 | Day surgery (SDC) | payer OTHER, SELFPAY ==
[2022-12-24 14:10] VITALS: BMI 29.9
[2023-01-05 12:19] VITALS: BP 119/72; PULSE 81; RESP 18; TEMP 37; O2SAT 96
[2023-01-05 12:50] LABS: HCG Qualitative, Serum Negative (Negative)
--- NOTE | 2023-01-05 13:22 | EXP.ANES.CKL ---
[facility] Disclaimer: The information contained in this section may have been updated after the patient was seen, as this information can be updated by other users. Medical History History of gastroesophageal reflux (GERD) Surgical History History of colonoscopy History of tubal ligation Family History Other Colon cancer Family history of diabetes mellitus type II Family history of hyperlipidemia Family history of hypertension Social History Smoking Status: Never smoker alcohol intake: never substance use type: denies use current occupational status: employed Travel in the last 8 weeks: None household members: spouse and family housing: house lives independently: No marital status: education level: college service: No current occupation: [employer] caffeine: Yes do you feel safe at home: Yes victim of physical abuse: No victim of emotional abuse: No victim of sexual abuse: No would you like helpful sources: No [facility] Anesthesia Checklist Patient Identification Patient Identification: Arm Band Structural Data Admitted From: Home Planned Operative Procedure/s: colonoscopy Consent for Planned Operative Procedure(s) Verified: Yes Verified Documents: Surgical Consent and History and Physical NPO Status Verified Time NPO: 00:00 Additional verifications Anesthesia Reactions: No Airway Assessment C-Spine Mobility Assessed: Yes TMJ Mobility Assessed: Yes Dentition: Good Dentition Neurological Assessment Level of Consciousness: Awake and Alert Anesthesia Plan Anesthesia Risk discussed: Yes Anesthesia Plan: Verified ASA Class: II Anesthesia Type: MAC
[2023-01-05 13:40] VITALS: O2SAT 96
--- NOTE | 2023-01-05 14:09 | HMH.SCOPE ---
Procedure: Date: 01/05/23 Patient Date of :: 1975 Procedure Performed:: Colonoscopy Indications:: The patient is a 47 year old who presents for surveillance colonoscopy for a history of polyps. There is a family history of colon cancer in her father Performing Provider:: Ty Rothman MD Referring Provider:: Jaime Garcia MD Sedation:: See RN records Procedure:: After placing the patient in the left lateral decubitus position, the colonoscopy was gently inserted into the rectum and under direct visualization advanced to the cecum which was identified by transillumination in the right lower quadrant, identification of the ileocecal valve, appendiceal orifice, and cecal strap. Color, texture, mucosa, and anatomy of the colon were carefully examined with the scope. Findings:: Anal canal: normal Rectum: small hemorrhoids Sigmoid colon: normal without polyps or inflammatory changes Descending colon: normal without polyps or inflammatory changes Splenic flexure: normal Transverse colon: normal without polyps or inflammatory changes Hepatic flexure: normal Ascending colon: normal without polyps or inflammatory changes Cecum: normal Terminal ileum: not visualized Impression: Normal appearing colon Recommendations:: Repeat colonoscopy in 5 years Complications:: none Estimated blood obtained (mL): 0 Colonoscopy Component Colonoscopy Component Was a colonoscopy performed during today's procedure?: Yes Recommended follow up colonoscopy of at least 10 years?: Yes
[2023-01-05 14:13] VITALS: BP 102/70; PULSE 88; RESP 16; TEMP 36.5; O2SAT 95
[2023-01-05 14:23] VITALS: BP 113/71; PULSE 80; RESP 14; O2SAT 95
[2023-01-05 14:33] VITALS: BP 124/76; PULSE 73; RESP 16; O2SAT 98
[2023-01-05 14:43] VITALS: BP 118/70; PULSE 88; RESP 16; TEMP 36.6; O2SAT 98
== END 2023-01-05 14:43 | disposition home or self-care (01) ==
PROVIDERS: PCP Nurse Practitioner Family; Visit Provider Internal Medicine
PROC: 0DJD8ZZ Inspection of Lower Intestinal Tract, Via Natural or Artificial Opening Endoscopic (ICD-10-PCS; CPT 45378; principal; 2023-01-05 13:00)
DX: Z12.11 Encounter for screening for malignant neoplasm of colon (principal); Z86.010 Personal history of colon polyps; Z80.0 Family history of malignant neoplasm of digestive organs; K64.8 Other hemorrhoids
CPT/HCPCS: 45378; 84703

== ENCOUNTER → 2023-03-15 07:37 | Outpatient (CLI) | payer OTHER, SELFPAY ==
--- NOTE | 2023-03-15 07:37 | MM_ITS ---
PROCEDURE INFORMATION: Exam: MG Bilateral Screening 3D Mammography Exam date and time: 03/15/2023 10:14 AM Age: 47 years old Clinical indication: Screening mammogram. No personal or family history of breast cancer TECHNIQUE: Imaging protocol: Bilateral Screening tomosynthesis and 2D mammography including computer-aided detection (CAD) when performed. COMPARISON: 1. MG MM DIG SCREENING MAMM BI W/CAD 12/18/2021 1:24 PM 2. MG MM DIG SCREENING MAMM BI W/CAD 07/16/2020 2:19 PM 3. MG MM DIG SCREENING MAMM BI W/CAD 07/13/2019 10:11 AM 4. MG SCBI MM Dig screening mamm BI w/CAD 04/06/2018 2:43 PM FINDINGS: MAMMOGRAPHY: Breast composition: There are scattered areas of fibroglandular density. Mass: None. Architectural distortion: No new or suspicious architectural distortion. Calcifications: No new or suspicious calcifications are present Asymmetric density: No new or suspicious asymmetric density is present Skin thickening: None. Axillary adenopathy: None. IMPRESSION: No mammographic evidence of malignancy. Recommend annual screening mammography unless otherwise clinically indicated. ASSESSMENT: BI-RADS category 1: Negative
== END ==
PROVIDERS: PCP Nurse Practitioner Family; Visit Provider Nurse Practitioner Obstetrics & Gynecology
DX: Z12.31 Encounter for screening mammogram for malignant neoplasm of breast (principal)
CPT/HCPCS: 77063; 77067

== ENCOUNTER 2023-10-31 12:10 | Emergency (ER) | payer OTHER, SELFPAY ==
[2023-10-31 12:15] VITALS: BP 138/97; PULSE 75; RESP 20; TEMP 36.7; O2SAT 97; BMI 30.9
--- NOTE | 2023-10-31 12:25 | PC.NURSE ---
VISUAL ACUITY TEST PERFORMED AT THIS TIME WITH PATIENT WEARING GLASSES (SHE USUALLY WEARS CONTACTS). 20/25 BILATERALLY, 20/30 LEFT, 20/25 RIGHT
--- NOTE | 2023-10-31 12:26 | ED_ITS ---
Discharge Plan Disposition Patient Disposition: Home, Self-Care Condition: Good Prescriptions Prescriptions: New prednisone 10 mg tablets,dose pack See Rx Instructions .ROUTE .COMPLEX Qty: 21 0RF Rx Instructions: Take as directed on package instructions No Action omeprazole 20 mg capsule,delayed release(DR/EC) 20 mg PO DAILY escitalopram oxalate 10 mg tablet 10 mg PO DAILY Patient Comments: TAKE ONE TABLET BY MOUTH EVERY DAY spironolactone 25 MG tablet 50 mg PO BID loratadine 10 tablet 10 mg PO DAILY amlodipine 10 MG tablet 5 mg PO DAILY Referrals Follow up/Referrals: Jaime Garcia MD [Primary Care Provider] - See instructions Activity Restrictions/Add. Instructions Additional Instructions/Restrictions: Start oral steriods tomorrow Go straight to [facility] for further evaluation and exam and furhter care per [facility] Return if needed Cool compresses to eyes may help with discomfort Clinical Impressions Clinical Impression: Allergic reaction Qualifiers: Encounter type: initial encounter Qualified Code(s): T78.40XA - Allergy, unspecified, initial encounter Instructions Patient Instructions: DI for Eye Allergic Reaction Discharge ED Provider: Abbie Carr [facility] General Stated complaint: redness and swelling to both eyes Mode of Arrival: Ambulatory Source of Information: Patient Limitations: No Limitations Time Seen by Provider: 10/31/23 12:27 Description of Symptoms (Recalled from Triage Doc. by RN): PATIENT C/O SWELLING AND REDNESS TO BILATERAL EYES THAT STARTED YESTERDAY. SHE STATES THAT AFTER GETTING EYELASH EXTENSIONS YESTERDAY HER EYES STARTED ITCHING. SHE WENT BACK AND HAD THE EXTENSIONS REMOVED, BUT STATES HER EYES CONTINUED TO SWELL OVER NIGHT HEENT Symptoms (Recalled from RN notes): Yes Resp Symptoms (Recalled from RN notes): No Skin Symptoms (Recalled from RN notes): No MS Symptoms (Recalled from RN notes): No Functional Status (Recalled from RN notes): WNL History of Present Illness Provider Complaint: Patient states that she had lashes applied yesterday at the salon and shortly after she started having itching and swelling in her eyelids so she went back to the salon and had them removed but eyelids has continued to have swelling, itching and irritation so today when they wasnt better she came in Related Data Home Medications Medication Instructions Recorded Confirmed spironolactone 25 mg tablet 50 mg PO BID Edema 10/31/17 03/11/21 loratadine 10 mg tablet 10 mg PO DAILY allergies 11/29/17 03/11/21 escitalopram oxalate 10 mg tablet 10 mg PO DAILY Depression 10/23/19 03/11/21 omeprazole 20 mg capsule,delayed 20 mg PO DAILY GERD 10/23/19 03/11/21 release amlodipine 10 mg tablet 5 mg PO DAILY High blood pressure 10/09/20 03/11/21 Previous Rx's Medication Instructions Recorded prednisone 10 mg tablets in a dose See Rx Instructions PO .COMPLEX 10/31/23 pack #21 tabs Allergies Allergy/AdvReac Type Severity Reaction Status Date / Time No Known Allergies Allergy Verified 01/05/23 12:18 Worker's Comp Is this a Worker's Comp case?: No [facility] Disclaimer: The information contained in this section may have been updated after the patient was seen, as this information can be updated by other users. Medical History (Updated 10/31/23 @ 12:35 by Abbie Carr APRN) History of gastroesophageal reflux (GERD) Surgical History History of colonoscopy History of tubal ligation Family History Other Colon cancer Family history of diabetes mellitus type II Family history of hyperlipidemia Family history of hypertension Social History Smoking Status: Never smoker alcohol intake: never substance use type: denies use current occupational status: employed Travel in the last 8 weeks: None household members: spouse and family housing: house lives independently: No marital status: education level: college service: No current occupation: [employer] caffeine: Yes do you feel safe at home: Yes victim of physical abuse: No victim of emotional abuse: No victim of sexual abuse: No would you like helpful sources: No ROS Obtained: Yes All systems reviewed & no additional complaints except as documented and Yes Systems reviewed as appropriate & no additional complaints except as documented Constitutional Constitutional: Reports system reviewed and no additional complaints, except as documented and Reports as per HPI Eyes Eyes: Reports system reviewed and no additional complaints, except as documented, Reports as per HPI and Reports other Comments: bilateral swelling of eyelids after having lashes placed yesterday but immediately return to the salon and had them removed when she started having swelling Physical Exam General General appearance: alert and in no apparent distress Eye Eye exam: Present other (swelling, redness and itching to bilateral upper eyelids after having lash extensions done yesterday, has since had them removed but still having itching and swelling to bilateral eyelids Denies vision changes or pain in eyes) ENT ENT exam: Present mucous membranes moist Respiratory Respiratory exam: Present normal lung sounds bilaterally; Absent respiratory distress or wheezes Cardiovascular Cardiovascular exam: Present regular rate, normal rhythm and normal heart sounds Neurological Exam Neurological exam: Present alert, oriented X3 and normal gait Medical Decision Making Gregory Inquiry Pt receiving controlled substance: No Gregory was queried for this patient: No Vital Signs: 10/31/23 12:15 Temperature 98.1 F Temperature Source Oral Pulse Rate [Left Brachial] 75 Respiratory Rate 20 Blood Pressure [Left Arm] 138/97 H Blood Pressure Mean [Left Arm] 110 Blood Pressure Source [Left Arm] Automatic Cuff Blood Pressure Position [Left Arm] Sitting 02 Sat by Pulse Oximetry 97 Oxygen Delivery Method Room Air Medical Decision Narrative: Spoke with staff from [facility] about patient and swelling in both upper eyelids after having lash extension done yesterday and shortly after having them started having itching, burning and swelling and returned and had them removed but has continued to have swelling and redness and they advised to have her come straight to the Office now for further examination will prescribed oral steriods and dc patient to go to [facility] for further evaluation and treatment
[2023-10-31 12:30] VITALS: BP 138/97; PULSE 75; RESP 20; TEMP 36.7; O2SAT 97
[2023-10-31] MEDS: METHYLPREDNISOLONE SOD SUCC 125MG VIAL 125 MG IM (12:35)
== END 2023-10-31 12:43 | disposition home or self-care (01) ==
PROVIDERS: Emergency Provider Nurse Practitioner; PCP Internal Medicine Adolescent Medicine
DX: T78.40XA Allergy, unspecified, initial encounter (principal); H02.841 Edema of right upper eyelid; H02.844 Edema of left upper eyelid; H53.141 Visual discomfort, right eye; H53.142 Visual discomfort, left eye
CPT/HCPCS: 96372; 99212; 99214; G0463

== ENCOUNTER 2024-03-07 08:03 | Outpatient (CLI) | payer OTHER, SELFPAY ==
[2024-03-07 08:43] LABS: Basophils # 0.1 K/mm3 (0-0.2); Basophils % 1.9 % (0.1-2.0); Eosinophils # 0.2 K/mm3 (0.0-0.4); Eosinophils % 3.6 % (0.1-12.0); Hematocrit 43.3 % (37.0-47.0); Hemoglobin 13.7 g/dL (12.2-16.2); Lymphocytes # 1.7 K/mm3 (0.7-4.5); Lymphocytes % 31.9 % (10-50); Mean Corpuscular HGB Conc 31.6 g/dL (31.8-35.4); Mean Corpuscular Volume 101.4 fl (81-99); Mean Platelet Volume 7.9 fl (7.4-10.4); Monocytes # 0.3 K/mm3 (0.1-1.0); Monocytes % 5.8 % (1.7-9.3); Neutrophils % 56.7 % (37.0-80.0); Platelet Count 293 K/mm3 (142-424); Red Blood Count 4.26 M/mm3 (4.20-5.40); White Blood Count 5.4 K/mm3 (4.8-10.8)
[2024-03-07 09:32] LABS: Alanine Aminotransferase 29 U/L (12-78); Albumin Level 4.7 g/dl (3.5-5.0); Albumin/Globulin Ratio 1.8 (1.1-1.8); Alkaline Phosphatase 48 U/L (38-126); Aspartate Amino Transferase 29 U/L (14-36); Bilirubin,Total 0.5 mg/dl (0.2-1.3); Blood Urea Nitrogen 13 mg/dl (7-17); Calcium 9.7 mg/dl (8.4-10.2); Carbon Dioxide 26 mmol/L (22.0-30.0); Chloride 106 mmol/L (98-107); Chol/HDL Ratio 4.8 (1-3.5); Cholesterol 176 mg/dl (140-200); Estimated Glomerular Filt Rate 90 ml/min (>60); GFR (African American) 109 ML/MIN (>60); Globulin 2.6 g/dL (1.3-3.2); Glucose 98 mg/dl (74-100); HDL Cholesterol 37 mg/dl (40-60); Sodium 139 mmol/L (136-145); Total Protein,Serum 7.3 g/dl (6.3-8.2); Triglycerides 115 mg/dl (30-150); VLDL Cholesterol 23 mg/dL (0-40)
[2024-03-07 12:04] LABS: Hemoglobin A1C 5.4 % (4.0-6.0)
== END 2024-03-07 23:59 | disposition home or self-care (01) ==
LOC: LAB 08:04
PROVIDERS: PCP Internal Medicine Adolescent Medicine; Visit Provider Nurse Practitioner Family
DX: R63.5 Abnormal weight gain (principal); I10 Essential (primary) hypertension; Z00.00 Encounter for general adult medical examination without abnormal findings; Z68.35 Body mass index [BMI] 35.0-35.9, adult
CPT/HCPCS: 36415; 80050; 80053; 80061; 83036; 84443; 85025

== ENCOUNTER 2024-03-28 07:26 | Outpatient (CLI) | payer OTHER, SELFPAY ==
--- NOTE | 2024-03-28 07:26 | MM_ITS ---
PROCEDURE INFORMATION: Exam: MG Bilateral Screening 3D Mammography Exam date and time: 03/28/2024 7:09 AM Age: 48 years old Clinical indication: Screening exam. TECHNIQUE: Imaging protocol: Bilateral Screening tomosynthesis and 2D mammography including computer-aided detection (CAD) when performed. COMPARISON: 1. MG MM DIG SCREENING MAMM BI W/CAD 03/15/2023 10:14 AM 2. MG MM DIG SCREENING MAMM BI W/CAD 12/18/2021 1:24 PM FINDINGS: MAMMOGRAPHY: Breast composition: There are scattered areas of fibroglandular density. Mass: No suspicious masses. Architectural distortion: None. Calcifications: No suspicious calcifications. Asymmetric density: None. Skin thickening: None. Axillary adenopathy: None. IMPRESSION: No mammographic evidence of malignancy. Annual screening is recommended unless otherwise clinically indicated. ASSESSMENT: BI-RADS Category 1: Negative.
== END 2024-03-28 23:59 | disposition home or self-care (01) ==
LOC: RAD 07:26
PROVIDERS: PCP Internal Medicine Adolescent Medicine; Visit Provider Nurse Practitioner Obstetrics & Gynecology
DX: Z12.31 Encounter for screening mammogram for malignant neoplasm of breast (principal)
CPT/HCPCS: 77063; 77067

== ENCOUNTER 2024-12-06 14:49 | Outpatient (RCR) | payer OTHER, SELFPAY ==
--- NOTE | 2024-12-06 16:03 | HMH.PTOPEV ---
PT Outpatient Evaluation Rehab PT Outpatient Evaluation Start: 12/06/24 14:55 Freq: Status: Active Protocol: Document 12/06/24 15:01 SHEREEN (Rec: 12/06/24 15:49 SHEREEN [id number]) E-signed By Zackery Hennessy, PT Outpatient Therapy Subjective History Subjective History Pt is a 49 yof who is referred to [facility] outpatient PT with complaints of acute onset LBP that began approximately one month ago when she bent over to pick something up while working on her pool. Pt reports that her pain is localized to the L side of her low back. Pt reports that her pain was more spasm-like initially and lasted for approximately 10 days and has transitioned into an ache. Pt reports that she initially sought care from a chiropractor, which helped in the short term. Pt reports that she was prescribed muscle relaxers, which did help significantly. Pt reports that her pain is worsened with doing heavier chores, such as mopping or vacuuming, bending or twisting. Pt reports that her overall pain is improving . PMH: None Occupation: [facility] New diagnosis of No cancer in past 12 months? Chief Complaint Pain,Stiff Symptom Type Ache Symptoms Relieved By Prescription Meds Symptoms Aggravated Sitting,Bending/Stooping By Prior Functional None Limitations Current Functional Lifting,Housework,Sitting,Bending/Stooping Limitations Symptom Description Constant but Variable,Activity Dependent Level of pain today 5 (0-10) Pain scale - at its 1 best (0-10) Pain scale - at its 10 worst (0-10) Lumbopelvic Eval Posture Lumbar Spine Posture Increased Lordosis Standing Position Assistive device Assistive Devices None / NA Gait Observation General Gait Pattern No Deviations/Normal Observation Palapation tenderness left lumbar spinal Yes: L3-L5 TTP 3/4 tenderness paraspinal Yes: L3-L5 TTP 3/4 tenderness Lumbar/Sacral Tenderness,Trigger Point Palpation Findings Lumbar/Sacral Palpable TrP to L lumbar paraspinals and L Quadratus Palpation Overall Lumborum Comment Accessory Movement L3 left L4 left L5 left Range of Motion Lumbar Spine Active 75% Flexion Range of Motion (degrees) Lumbar Spine Active 40% Extension Range of Motion (degrees) Left Lumbar Spine 40% Lateral Flexion Active Range of Motion (degrees) Right Lumbar Spine 40% Lateral Flexion Active Range of Motion (degrees) Lumbar Spine ROM Soft Tissue Tightness,Pain Limitations Manual Muscle Test Bilateral Knee Extension 4 Good Strength Grade Knee Flexion 4 Good Strength Grade Hip Flexion Strength 4- Good- Grade Hip Abduction 2+ Poor+ Strength Grade Hip External 3 Fair Rotation Strength Grade Hip Internal 3 Fair Rotation Strength Grade Hip Extension 3- Fair- Strength Grade Extensor Hallucis 5 Normal Longus Strength Grade Ankle Dorsiflexion 5 Normal Strength Grade DTR Rt Patellar 2+ Lt Patellar 2+ Rt Gastroc/Soleus 2+ Lt Gastroc/Soleus 2+ Altered Sensation Bilateral Comment Intact to LT symmetrically Special Tests Lumbar Spine Screen Positive Forward Bending Test Negative Left - Standing Hip Sitting Root Negative Left Test Forward Bending Test Negative Left - Sitting Hip Scouring ( Negative Left Quadrant) Test Hip Ezequiel ([place]) Negative Left Test Hip Magda Test Negative Left Hip Piriformis Test Negative Left Sciatic Nerve Negative Left Tension Test Reverse Sciatic Negative Left Nerve Tension Test Crossed Straight Leg Negative Left Raise Test Abran Test Positive Lumbar Spine Stoop Negative Test Hip Alexa's Test Negative Left Sacroiliac Joint Negative Left Compression Test Sacroiliac Joint Negative Left Distraction Test Jarad's Sign Test Negative Left Lumbar Long [place] Negative Distraction Test/ Manual Traction Oswestry Index Section 1 Pain Intensity The pain comes and goes and is very mild Section 2 Personal Care ( my way of washing or dressing even though it causes Washing,Dresing) some pain Section 3 Lifting I can lift heavy weights, but it gives me extra pain Section 4 Walking I have no pain when walking Section 5 Sitting Pain prevents me from sitting for more than one hour Section 6 Standing I can stand as long as I want without pain Section 7 Sleeping I get pain in bed, but it does not prevent me from sleeping well Section 8 Social Life My social life is normal and gives me no extra pain Section 9 Traveling I get no pain when traveling Section 10 Changing Degreee of My pain is getting better Pain Score and Risk Level Oswestry Sc 5 Oswestry Risk Level Mild Disability Outpatient Therapy Assessment Impairments Problems/ Palpation Tenderness,Impaired Range of Motion,Impaired Impairmments Strength,Impaired Sitting,Impaired Household Care, Impaired Work Activities,Subjective C/O Pain Prognosis Rehab Potential Good Clinical Impression Consistent with Yes Diagnosis Consistent with LBP with mobility deficits Additional details: M54.5 Short Term Goals Number of Weeks 2 Decreased Palpation Yes: 2/4 TTP to palpatory exam above Tenderness Increase Range of Yes: 50-75% WNL Lumbar ROM Motion Increase Strength Yes: 3+/5 to B hip complexes Decrease Subjective Yes: 5/10 with above assessment C/O Pain Patient to be Ind w/ Yes HEP Traffic Maintenance Supervisor Goals Number of Weeks 8 Decreased Palpation Yes: 0-1/4 to TTP assessment above Tenderness Increase Range of Yes: - Abran Test Bilaterally Motion Increase Strength Yes: 4-4+/5 to B hip complexes Increase Ability to Yes: 1 hour without increasing symptoms Sit Improve Ability For Yes: Vacuum and Mop without increasing symptoms Household Care Improve Tolerance to Yes: Normal day's work without increasing symptoms Work Activities Improve Oswestry Yes: to No disability Score Decrease Subjective Yes: 2-08/20 with above assessment C/O Pain Patient to be Ind w/ Yes Advanced HEP Outpatient Therapy Plan of Care Treatment Plan May Include Therapeutic Exercise Yes Including Home Exercise Program Manual Therapy Yes Techniques Neuromuscular Re- Yes education Therapeutic Yes Activities to Return to Previous Functional/Work Level Gait Training Yes ADL/Self Care Yes Education Mechanical Traction Yes Dry Needling Yes Thermal Modalities Yes Electrical Yes Stimulation Ultrasound/ Yes Phonophoresis Iontophoresis Yes Massage Yes Manual Lymphatic Yes Drainage Eval/Re-Eval Yes Frequency Times per week 2 Duration Number of Weeks 4 Addendums This patient is a No candidate for social or vocational rehab ? Patient/Guardian Yes verbally acknowledges understanding of treatment program and consents to further treatment? Patient/Guardian Yes verbally acknowledges understanding of diagnosis, prognosis and goals for treatment? Eval Complexity PT Charges 53132 - Low Complexity Shoulder/Elbow Eval Shoulder Objective Measurements Elbow Objective Measurements PHYSICIAN CERTIFICATION: I certify the specified therapy services for Maritza Monge are required, authorized, and reviewed every 30 days.
== END 2024-12-06 23:59 | disposition home or self-care (01) ==
LOC: PT 14:49
PROVIDERS: PCP Internal Medicine Adolescent Medicine; Visit Provider Internal Medicine Adolescent Medicine
DX: M54.50 Low back pain, unspecified (principal)
CPT/HCPCS: 97161; 97530

== ENCOUNTER 2025-02-05 08:19 | Outpatient (CLI) | payer OTHER, SELFPAY ==
--- OUTSIDE RECORDS SUMMARY | 2025-02-05 08:22 | XMS_ITS | Encounter Summary ---
Author Organization [facility] Address [address] [place] [address] Care Team Providers Care Salesperson Recreational Vehicles Name Role Phone Jaime Garcia MD Primary Care Provider [phone] Reason for Referral * Consultation (Routine) - Authorized Specialty Diagnoses / Procedures Referred By Contact Referred To Contact Physical Medicine and Rehabilitation Diagnoses Acute bilateral low back pain without sciatica Jaime Garcia MD [address] [place] [id number] Phone: tel: fax: Sebas Todd, DO [address] [place] [address] Phone: tel: fax: Referral ID Status Reason Start Date Expiration Date Visits Requested Visits Authorized [id number] Authorized Specialty Services Required 11/13/2024 05/15/2026 1 1 Encounter Details Date Type Department Care Team (Late st Contact Info) Description 11/13/2024 Community [facility] Community Practice [address] [place] [address] Jaime Garcia MD [address] [facility] [address] [place] [address] Acute bilateral low back pain without sciatica (Primary Dx) Social History Tobacco Use Types Packs/Day Years Used Date Smoking Tobacco: Never Assessed Comments Unknown Sex and Gender Information Value Date Recorded Sex Assigned at Not on file Legal Sex Female 6:14 PM EDT Gender Identity Not on file Sexual Orientation Not on file documented as of this encounter Plan of Treatment Scheduled Referrals Name Type Priority Associated Diagnoses Order Schedule Ambulatory referral to Physical Medicine Rehab Outpatient Referral Routine Acute bilateral low back pain without sciatica Expected: 11/13/2024 (Approximate), Expires: 05/17/2026 documented as of this encounter Visit Diagnoses Diagnosis Acute bilateral low back pain without sciatica- Primary documented in this encounter Care Teams Salesperson Recreational Vehicles Relationship Specialty Start Date End Date Jaime Garcia MD [address] [place] [address] PCP - General 10/24/20 documented as of this encounter
--- OUTSIDE RECORDS SUMMARY | 2025-02-05 08:22 | XMS_ITS | Clinical Summary ---
Author Organization Healthcare Address [address] [place] [address] Care Team Providers Care Esl Tutor Name Role Phone Jaime Garcia MD Primary Care Provider [phone] Encounters Date Type Department Care Team Description 11/13/2024 Community [facility] Community Practice [address] [place] [address] Jaime Garcia MD Acute bilateral low back pain without sciatica (Primary Dx) from Last 3 Months Social History Tobacco Use Types Packs/Day Years Used Date Smoking Tobacco: Never Assessed Comments Unknown Sex and Gender Information Value Date Recorded Sex Assigned at Not on file Legal Sex Female 6:14 PM EDT Gender Identity Not on file Sexual Orientation Not on file Plan of Treatment Not on file Insurance Care Teams Esl Tutor Relationship Specialty Start Date End Date Jaime Garcia MD [address] [place] [address] PCP - General 10/24/20
[2025-02-05 09:00] LABS: Hematocrit 38.2 % (37.0-47.0); Hemoglobin 12.9 g/dL (12.2-16.2); Immature Granulocytes % 0.4 %; Mean Corpuscular HGB Conc 33.8 g/dL (31.8-35.4); Mean Corpuscular Hemoglobin 32.3 pg (27.0-31.2); Mean Corpuscular Volume 95.7 fl (81-99); Nucleated Red Blood Cells % 0 %; Platelet Count 267 K/mm3 (142-424); Red Blood Count 3.99 M/mm3 (4.20-5.40); Red Cell Distribution Width-SD 41.3 fL; White Blood Count 4.7 K/mm3 (4.8-10.8)
[2025-02-05 09:24] LABS: Albumin Level 4.4 g/dl (3.5-5.0); Chloride 105 mmol/L (98-107); Potassium 3.9 mmoL/L (3.5-5.1); Sodium 141 mmol/L (136-145)
[2025-02-05 09:26] LABS: Alanine Aminotransferase 11 U/L (12-78); Anion Gap 11.9 mEq/L (5-15); Aspartate Amino Transferase 21 U/L (14-36); Blood Urea Nitrogen 10 mg/dl (7-17); Carbon Dioxide 28 mmol/L (22.0-30.0); Creatinine,Serum 0.80 mg/dl (0.52-1.04); Estimated Glomerular Filt Rate 77 ml/min (>60); GFR (African American) 93 ML/MIN (>60)
[2025-02-05 09:27] LABS: Albumin/Globulin Ratio 1.9 (1.1-1.8); Alkaline Phosphatase 45 U/L (38-126); Bilirubin,Total 0.3 mg/dl (0.2-1.3); Calcium 9.1 mg/dl (8.4-10.2); Globulin 2.3 g/dL (1.3-3.2); Glucose 86 mg/dl (74-100); Total Protein,Serum 6.7 g/dl (6.3-8.2)
[2025-02-05 09:31] LABS: Hemoglobin A1C 5.1 % (4.0-6.0)
[2025-02-05 09:53] LABS: 25-OH Vitamin D, Total 75.6 ng/mL (30-100)
[2025-02-05 09:59] LABS: Thyroid Stimulating Hormone 1.08 uIU/mL (0.465-4.68)
[2025-02-05 10:02] LABS: Ferritin 26.7 ng/ml (6.24-137)
[2025-02-05 14:01] LABS: Vitamin B12 216 pg/mL (239-931)
[2025-02-06 11:13] LABS: FSH 11.4 mIU/mL (.); LH 12.2 mIU/mL (.); Testosterone,Total 8 ng/dL (4-50)
== END 2025-02-05 23:59 | disposition home or self-care (01) ==
LOC: LAB 08:20
PROVIDERS: PCP Internal Medicine Adolescent Medicine; Visit Provider Obstetrics & Gynecology
DX: L65.9 Nonscarring hair loss, unspecified (principal)
CPT/HCPCS: 36415; 80053; 82306; 82607; 82670; 82728; 83001; 83002; 83036; 84144; 84403; 84443; 85025

== ENCOUNTER 2025-04-24 09:56 | Outpatient (CLI) | payer OTHER, SELFPAY ==
--- OUTSIDE RECORDS SUMMARY | 2025-04-24 10:03 | XMS_ITS | Clinical Summary ---
Author Organization [facility] Address [address] [place] [address] Care Team Providers Care Websphere Consultant Name Role Phone Jaime Garcia MD Primary Care Provider [phone] Social History Tobacco Use Types Packs/Day Years Used Date Smoking Tobacco: Never Assessed Comments Unknown Sex and Gender Information Value Date Recorded Sex Assigned at Not on file Legal Sex Female 6:14 PM EDT Gender Identity Not on file Sexual Orientation Not on file Plan of Treatment Not on file Insurance Care Teams Websphere Consultant Relationship Specialty Start Date End Date Jaime Garcia MD [address] [place] [address] PCP - General 10/24/20
--- OUTSIDE RECORDS SUMMARY | 2025-04-24 10:03 | XMS_ITS | Encounter Summary ---
Author Organization [facility] Address [address] [place] [address] Care Team Providers Care Tractor Trailer Moving Van Driver Name Role Phone Jaime Garcia MD Primary Care Provider [phone] Reason for Referral * Consultation (Routine) - Authorized Specialty Diagnoses / Procedures Referred By Contact Referred To Contact Physical Medicine and Rehabilitation Diagnoses Acute bilateral low back pain without sciatica Jaime Garcia MD [address] [place] [id number] Phone: tel: fax: Sebas Todd, DO [address] [place] [address] Phone: tel: fax: Referral ID Status Reason Start Date Expiration Date Visits Requested Visits Authorized [id number] Authorized Specialty Services Required 11/13/2024 05/15/2026 1 1 Encounter Details Date Type Department Care Team (Late st Contact Info) Description 11/13/2024 Community [facility] [address] [place] [address] Jaime Garcia MD [address] [facility] [address] [place] [address] Acute bilateral low back pain without sciatica [...] Primary documented in this encounter Care Teams Tractor Trailer Moving Van Driver Relationship Specialty Start Date End Date Jaime Garcia MD [address] [place] [address] PCP - General 10/24/20 documented as of this encounter
--- NOTE | 2025-04-24 14:00 | MM_ITS ---
PROCEDURE INFORMATION: Exam: MG Bilateral Screening 3D Mammography Exam date and time: 04/24/2025 1:54 PM Age: 49 years old Clinical indication: Screening mammogram TECHNIQUE: Imaging protocol: Bilateral Screening tomosynthesis and 2D mammography including computer-aided detection (CAD) when performed. COMPARISON: 1. MG MM DIG SCREENING MAMM BI W/CAD 03/28/2024 7:09 AM 2. MG MM DIG SCREENING MAMM BI W/CAD 03/15/2023 10:14 AM 3. MG MM DIG SCREENING MAMM BI W/CAD 12/18/2021 1:24 PM 4. MG MM DIG SCREENING MAMM BI W/CAD 07/16/2020 2:19 PM FINDINGS: MAMMOGRAPHY: Breast composition: There are scattered areas of fibroglandular density. Mass: None. Architectural distortion: No new or suspicious architectural distortion. Calcifications: No new or suspicious calcifications are present Asymmetric density: No new or suspicious asymmetric density is present Skin thickening: None. Axillary adenopathy: None. IMPRESSION: No mammographic evidence of malignancy. Recommend annual screening mammography unless otherwise clinically indicated. ASSESSMENT: BI-RADS category 1: Negative.
== END 2025-04-24 23:59 | disposition home or self-care (01) ==
LOC: RAD 09:57
PROVIDERS: PCP Internal Medicine Adolescent Medicine; Visit Provider Obstetrics & Gynecology
DX: Z12.31 Encounter for screening mammogram for malignant neoplasm of breast (principal); R92.323 Mammographic fibroglandular density, bilateral breasts
CPT/HCPCS: 77063; 77067